=== PATIENT | male | born 1960 | race Hispanic/Latino ===

== ENCOUNTER → 2020-05-13 | Day surgery (SDC) | payer BC ==
[~2020-05-13] MED LIST: DILTIAZEM 24HR120 M1 PO; METFORMIN HCL500 MG PO; PROPOFOL IV EMULSION 10 MG/ML 20 ML VIAL ONE
[2020-05-13 07:35] VITALS: BP 110/72
== END | disposition home or self-care (01) ==
LOC: OR 05:38
PROVIDERS: ATTEND Internal Medicine Gastroenterology
DX: Z12.11 Encounter for screening for malignant neoplasm of colon (principal); D12.3 Benign neoplasm of transverse colon; K64.8 Other hemorrhoids; Z71.3 Dietary counseling and surveillance; E66.9 Obesity, unspecified; E11.9 Type 2 diabetes mellitus without complications; I10 Essential (primary) hypertension; R06.83 Snoring; Z01.810 Encounter for preprocedural cardiovascular examination; Z01.812 Encounter for preprocedural laboratory examination; Z11.59 Encounter for screening for other viral diseases; Z79.84 Long term (current) use of oral hypoglycemic drugs; Z68.31 Body mass index [BMI] 31.0-31.9, adult
CPT/HCPCS: 36415; 45385; 82948; 93005; J2704; U0002; 45378

== ENCOUNTER 2022-11-09 11:46 | Emergency (ER) | payer BC ==
[~2022-11-09] VITALS: Ht 185.4 cm; Wt 101.2 kg
[~2022-11-09 11:46] MED LIST changes: -PROPOFOL IV EMULSION 10 MG/ML 20 ML VIAL ONE
[2022-11-09] MEDS ORDERED: ACYCLOVIR800 MG PO (12:04)
[2022-11-09] MEDS ORDERED: AMOX TR-K CLV1 EAC2 PO (12:04)
[2022-11-09] MEDS ORDERED: ACETAMINOPHEN-1 EAC4 PO (12:04)
== END 2022-11-09 12:10 | disposition home or self-care (01) ==
LOC: ER 11:53
DX: B02.8 Zoster with other complications (principal); H66.91 Otitis media, unspecified, right ear
CPT/HCPCS: 99282